=== PATIENT | female | born 1985 | race Caucasian/White ===

== ENCOUNTER 2020-05-08 06:50 | Outpatient (NON) | payer OTHER, SELFPAY ==
[2020-05-08 23:48] LABS: SARS-CoV-2 RNA PCR Negative
== END 2020-05-08 06:51 ==
PROVIDERS: PCP Family Medicine; Visit Provider Nurse Practitioner Family
DX: Z20.828 Contact with and (suspected) exposure to other viral communicable diseases (principal)
CPT/HCPCS: 87635; C9803; U0003

== ENCOUNTER → 2021-11-25 14:54 | Outpatient (CLI) | payer OTHER, SELFPAY ==
--- NOTE | ~2021-11-25 | MR_ITS ---
EXAMINATION: MR ankle RT wo con DATE: 11/25/2021 15:24 INDICATION: Plantar fasciitis. TECHNIQUE: Magnetic resonance imaging (MRI) of the right ankle was performed without intravenous cont rast. Sequences included sagittal PD-weighted FS FSE, sagittal PD-weighted FSE, coronal PD-weighted F S FSE, coronal PD-weighted FSE, axial PD-weighted FS FSE, and axial PD-weighted FSE. COMPARISON: None. FINDINGS: Medial ankle ligaments: Superficial and deep deltoid fibers are intact. Lateral ankle ligaments: The anterior and posterior tibiofibular ligaments are intact. The anterior talofibular ligament is ob scured by artifact. Posterior talofibular ligament intact. The calcaneofibular ligament is intact. Tendons: The flexor and extensor tendons are intact. Plantar fascia: Plantar enthesopathy, with mild reactive marrow edema. Mild thickening of the proximal plantar fascia . Bones/other: Metallic artifact from fixation of the distal fibula and lateral talus. Bone marrow signal otherwise benign and homogenous. Fluid: No significant ankle joint effusion. Minimal retrocalcaneal fluid. IMPRESSION: 1. Plantar fasciitis and enthesopathy. 2. Prior hardware fixation of the fibula and talus. Reviewed, dictated and finalized at location K.
== END ==
PROVIDERS: PCP Podiatrist Foot & Ankle Surgery; Visit Provider Podiatrist Foot & Ankle Surgery
DX: M72.2 Plantar fascial fibromatosis (principal); Z98.890 Other specified postprocedural states
CPT/HCPCS: 73721